=== PATIENT | female | born 1995 | race Caucasian/White ===

== ENCOUNTER 2019-08-30 08:49 | Emergency (ER) | payer BC ==
[2019-08-30] MEDS ORDERED: METHYLPREDNISOLONE 125 MG INJ ONE (09:33)
[2019-08-30] MEDS ORDERED: NA CHLORIDE 0.9% 1,000 ML ONE (09:33)
[2019-08-30 09:45] LABS: Absolute Lymphocytes (CBC) 0.7 K/uL (0.7-4.9); Basophils % 0.2 % (0-1.3); Hematocrit 46.2 % (36.0-45.0); Lymphocytes % 6.8 % (15.3-44.8); MPV 8.4 fL (7.6-11.3); RBC Red Blood Cell Count 5.45 M/uL (3.86-4.86)
[2019-08-30 10:02] LABS: Albumin 3.3 g/dL (3.4-5.0); Bilirubin Direct 0.2 mg/dL (0-0.2); Bilirubin Total 0.6 mg/dL (0.2-1.0); Potassium 3.8 mmol/L (3.5-5.1); Protein, Total 8.1 g/dL (6.4-8.2)
[2019-08-30 10:07] LABS: Urine Amorphous Sediment 1+ /HPF (NONE SEEN); Urine Bacteria 20-50 /HPF (<20); Urine Culture Reflex Order REFLEXED; Urine RBC <5 /HPF (NONE SEEN)
[2019-08-30 10:13] LABS: Urine Blood TRACE (NEG); Urine Glucose NEGATIVE (NEG); Urine Protein NEGATIVE (NEG)
--- NOTE | 2019-08-30 10:32 | RAD REPORT ---
EXAM DESCRIPTION: CT - Abdomen Pelvis W Contrast - 08/30/2019 10:06 am CLINICAL HISTORY: Ulcerative colitis, abd pain, bloody stool COMPARISON: No comparisons TECHNIQUE: Biphasic, helical CT imaging of the abdomen and pelvis was performed following 100 ml non -ionic IV contrast. No oral contrast given. All CT scans are performed using dose optimization technique as appropriate and may include automated exposure control or mA/KV adjustment according to patient size. FINDINGS: No suspicious findings in the lung bases. The liver, spleen, and pancreas show no suspicious findings. Gallbladder and biliary tree are also wi thout suspicious finding. Symmetric renal function is seen with no hydronephrosis or suspicious renal mass. No pyelonephritis o r acute parenchymal process. No bladder abnormalities. No adrenal abnormalities. No uterine abnormali ty. No significant ovarian process. No gastric dilatation or wall thickening. A few small fluid-filled distal small bowel loops are prese nt. No terminal ileum abnormality seen. Appendix is not clearly defined. Cystitis is not suspected. Circumferential wall thickening and edema are present primarily involving the sigmoid and rectum port ions of the colon. Mucosal surfaces enhancing. The wall thickening does extend proximally to the hepa tic flexure region. Cecum and ascending colon are generally spared. No underlying mass lesion. No free air or pneumatosis. Trace amount of stranding is present in the fatty tissues adjacent to th e left side colon. No hernia, mass or bulky lymphadenopathy. No suspicious bony findings. IMPRESSION: Circumferential wall thickening and edema changes are present from the hepatic flexure t o the distal rectum. Findings are most pronounced in the rectosigmoid region. Findings are consistent with the ulcerative colitis history provided. No mass lesion. No No obstruction, free air or surgically emergent finding.
--- NOTE | 2019-08-30 10:48 | ER ---
Nurse's Notes [facility] Name: Barbara Castanon Age: 23 yrs Sex: Female : 1995 Arrival Date: 08/30/2019 Time: 08:53 Bed 20 Private MD: Diagnosis: Ulcerative (chronic) pancolitis without complications;Dehydration Presentation: 08/29 09:23 Chief complaint: Patient states: has hx of ulcerative colitis, has had a flare up for iw past month and half, has 20 plus episodes of bloody stools per day, has been on a liquid diet for past two days, feels more weak. Coronavirus screen: Proceed with normal triage. Patient denies a cough. Patient denies shortness of breath or difficulty breathing. Patient denies measured and/or subjective temperature greater than 100.4F prior to today's visit. Patient denies travel on a cruise ship or to a country the [facility] currently lists as an affected area. Patient denies contact with known and/or suspected case of COVID-19. Ebola Screen: Patient negative for fever greater than or equal to 101.5 degrees Fahrenheit, and additional compatible Ebola Virus Disease symptoms Patient denies exposure to infectious person. Patient denies travel to an Ebola-affected area in the 21 days before illness onset. No symptoms or risks identified at this time. Initial Sepsis Screen: Does the patient meet any 2 criteria? No. Patient's initial sepsis screen is negative. Does the patient have a suspected source of infection? No. Patient's initial sepsis screen is negative. Risk Assessment: Do you want to hurt yourself or someone else? Patient reports no desire to harm self or others. Onset of symptoms was July 2019. 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 - Social history:: Smoking status: Patient denies any tobacco usage or history of. - Family history:: not pertinent. - Hospitalizations: : No recent hospitalization is reported. Screenin:35 Abuse screen: Denies threats or abuse. Denies injuries from another. Nutritional ss screening: No deficits noted. Tuberculosis screening: Never had TB. Fall Risk None identified. Assessment: 09:35 General: Appears in no apparent distress. comfortable, Behavior is calm, cooperative. ss Pain: Complains of pain in abdomen Pain currently is 4 out of 10 on a pain scale. Quality of pain is described as aching, crampy, Is continuous. Neuro: Level of Consciousness is awake, alert, obeys commands, Oriented to person, place, time, situation. Cardiovascular: Capillary refill < 3 seconds is brisk in bilateral fingers. Respiratory: Airway is patent Respiratory effort is even, unlabored, Respiratory pattern is regular, symmetrical. GI: Reports diarrhea, blood in stool. : No signs and/or symptoms were reported regarding the genitourinary system. Denies burning with urination, urinary frequency. EENT: Oral mucosa is moist. Derm: Skin is intact, is healthy with good turgor, Skin is dry, Skin is pink, warm \T\ dry. normal. Musculoskeletal: Circulation, motion, and sensation intact. Range of motion: intact in all extremities, Swelling absent. 10:04 Reassessment: Pt in CT now. ss 10:23 Reassessment: Patient appears in no apparent distress at this time. Patient and/or ss family updated on plan of care and expected duration. Pain level reassessed. Patient is alert, oriented x 3, equal unlabored respirations, skin warm/dry/pink. Pain is now 3/10 and improving. Patient states feeling better. 10:51 Reassessment: Pt up for discharge, awaiting for fluids to complete infusing prior to ss discharge. Vital Signs: 09:23 BP 139 / 106; Pulse 84; Resp 16; Temp 99.1; Pulse Ox 100% on R/A; Weight 63.5 kg; iw Height 5 ft. 9 in. (175.26 cm); Pain 4/10; 10:17 BP 140 / 93; Pulse 74; Resp 16; Pulse Ox 100% on R/A; Pain 3/10; ss 09:23 Body Mass Index 20.67 (63.50 kg, 175.26 cm) ED Course: 08:53 Patient arrived in ED. ag5 09:09 Ulices Mane MD is Attending Physician. rn 09:14 Pedro Boyd, RN is Primary Nurse. bp 09:25 Triage completed. iw 09:28 Arm band placed on. iw 09:29 Inserted saline lock: 20 gauge in right antecubital area, using aseptic technique. ss Blood collected. 09:35 Patient has correct armband on for positive identification. Bed in low position. Call ss light in reach. 10:06 CT Abd/Pelvis - IV Contrast Only In Process Unspecified. EDMS 10:46 Mendez Holguin MD is Referral Physician. rn 11:17 No provider procedures requiring assistance completed. Patient did not have IV access ss during this emergency room visit. Administered Medications: 09:30 Drug: NS 0.9% 1000 ml Route: IV; Rate: 1000 ml; Site: right antecubital; ss 11:17 Follow up: IV Status: Completed infusion; IV Intake: 1000ml ss 09:31 Drug: SOLU-Medrol 125 mg Route: IVP; Site: right antecubital; ss 11:17 Follow up: Response: No adverse reaction ss Intake: 11:17 IV: 1000ml; Total: 1000ml. ss Outcome: 10:47 Discharge ordered by MD. rn 11:17 Discharged to home ambulatory. ss 11:17 Condition: good 11:17 Discharge instructions given to patient, Instructed on discharge instructions, follow up and referral plans. Demonstrated understanding of instructions, follow-up care. 11:18 Patient left the ED. ss Signatures: Dispatcher [employer] EDMS Kandice Mcdermott RN RN Ulices Mane MD MD rn Smirch, Shelby, RN RN Pedro Boyd, Parag Marques RN ag5
[2019-08-30 10:55] LABS: Blood Morphology Comment NOT SEEN (NOT SEEN); Platelet Estimate ADEQ
--- NOTE | 2019-08-30 11:19 | EDPHYS ---
Physician Documentation [facility] Name: Barbara Castanon Age: 23 yrs Sex: Female : 1995 Arrival Date: 08/30/2019 Time: 08:53 Bed 20 Private MD: ED Physician Ulices Mane HPI: 08/29 09:28 This 23 yrs old Female presents to ER via Ambulatory with complaints of rn Ulcerative Colitis Flare Up. 09:28 The patient presents with abdominal pain in the lower abdomen. Onset: The rn symptoms/episode began/occurred 1.5 month(s) ago. The symptoms do not radiate. Associated signs and symptoms: Pertinent positives: blood in stools, diarrhea, nausea, Pertinent negatives: fever, vaginal discharge, vomiting blood. The symptoms are described as crampy. Modifying factors: The symptoms are alleviated by nothing, the symptoms are aggravated by food, touching the area. Severity of pain: At its worst the pain was moderate in the emergency department the pain has improved. The patient has experienced similar episodes in the past. Reports lower abd cramping, pain is actually improving, came 2/2 ulcerative colitis flare up, has uptitrated her prednisone to 50mg daily, sees Dr. Holguin, is on biologics, reports some blood in stool, + generalized weakness and fatigue. Reports usually when gets like this is able to get IV infusion of fluids and feels better. Has never required blood transfusion. . 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 - Social history:: Smoking status: Patient denies any tobacco usage or history of. - Family history:: not pertinent. - Hospitalizations: : No recent hospitalization is reported. ROS: 09:28 Constitutional: Negative for fever, chills Eyes: Negative for injury, pain, redness, rn and discharge, Neck: Negative for injury, pain, and swelling, Cardiovascular: Negative for chest pain, palpitations, and edema, Respiratory: Negative for shortness of breath, cough, wheezing, and pleuritic chest pain, Abdomen/GI: Negative for vomiting, and constipation, MS/Extremity: Negative for injury and deformity, Skin: Negative for injury, rash, and discoloration, Neuro: Negative for headache, numbness, tingling, and seizure. Exam: 09:28 Constitutional: This is a well developed, well nourished patient who is awake, alert, rn and in no acute distress. Ambulatory to room without difficulty or assistance. Head/Face: Normocephalic, atraumatic. Eyes: Conjunctiva and sclera are non-icteric and not injected. Cornea within normal limits. Periorbital areas with no swelling, redness, or edema. ENT: Dry MM Cardiovascular: Regular rate and rhythm. No pulse deficits. Respiratory: No increased work of breathing, no retractions or nasal flaring. Abdomen/GI: soft, non-tender, no rebound, non-distended Skin: Warm, dry MS/ Extremity: Pulses equal, no cyanosis. Neurovascular intact. Full, normal range of motion. Equal circumference. Neuro: Awake and alert, GCS 15 Vital Signs: 09:23 BP 139 / 106; Pulse 84; Resp 16; Temp 99.1; Pulse Ox 100% on R/A; Weight 63.5 kg; iw Height 5 ft. 9 in. (175.26 cm); Pain 4/10; 10:17 BP 140 / 93; Pulse 74; Resp 16; Pulse Ox 100% on R/A; Pain 3/10; ss 09:23 Body Mass Index 20.67 (63.50 kg, 175.26 cm) iw MDM: 09:10 Patient medically screened. rn 10:45 Differential diagnosis: bowel obstruction, non-specific abd pain, colitis, Ulcerative rn colitis, appendicitis. Data reviewed: vital signs, nurses notes, lab test result(s), radiologic studies, CT scan, and as a result, I will discharge patient. Counseling: I had a detailed discussion with the patient and/or guardian regarding: the historical points, exam findings, and any diagnostic results supporting the discharge/admit diagnosis, lab results, radiology results, the need for outpatient follow up, to return to the emergency department if symptoms worsen or persist or if there are any questions or concerns that arise at home. Response to treatment: the patient's symptoms have mildly improved after treatment, and as a result, I will discharge patient. Special discussion: I discussed with the patient/guardian in detail that at this point there is no indication for admission to the hospital. It is understood, however, that if the symptoms persist or worsen the patient needs to return immediately for re-evaluation. ED course: No acute findings in CT abdomen or bloodwork other than dehydration, no anemia requiring blood transfusion, improved with IVF, will dc home with continuation of steroids and GI f/u. . 08/29 09:15 Order name: Basic Metabolic Panel; Complete Time: 10:16 08/29 09:15 Order name: CBC with Diff 08/29 09:15 Order name: Hepatic Function; Complete Time: 10:16 08/29 09:15 Order name: Lipase; Complete Time: 10:16 08/29 09:15 Order name: Urine Microscopic Only; Complete Time: 10:16 08/29 09:46 Order name: Urine Dipstick--Ancillary (enter results); Complete Time: 10:16 [facility] 08/29 09:15 Order name: IV Saline Lock; Complete Time: 09:44 08/29 09:15 Order name: CT Abd/Pelvis - IV Contrast Only; Complete Time: 10:45 08/29 09:46 Order name: Urine --Ancillary (enter results); Complete Time: 10:16 [facility] 08/29 10:10 Order name: Urine Culture [facility] 08/29 10:22 Order name: CREATININE WHOLE BLOOD; Complete Time: 10:45 [facility] 08/29 10:56 Order name: Manual Differential [facility] 08/29 09:15 Order name: Labs collected and sent; Complete Time: 09:45 08/29 09:15 Order name: Urine Test (obtain specimen); Complete Time: 09:44 08/29 09:15 Order name: Urine Dipstick-Ancillary (obtain specimen); Complete Time: 09:44 rn Administered Medications: 09:30 Drug: NS 0.9% 1000 ml Route: IV; Rate: 1000 ml; Site: right antecubital; 11:17 Follow up: IV Status: Completed infusion; IV Intake: 1000ml 09:31 Drug: SOLU-Medrol 125 mg Route: IVP; Site: right antecubital; 11:17 Follow up: Response: No adverse reaction ss Disposition: 08/30/19 10:47 Discharged to Home. Impression: Ulcerative (chronic) pancolitis without complications, Dehydration. - Condition is Stable. - Discharge Instructions: Dehydration, Adult, Ulcerative Colitis, Adult. - Medication Reconciliation Form, Thank You Letter, Antibiotic Education, Prescription Opioid Use form. - Follow up: Mendez Holguin MD; When: As needed; Reason: Recheck today's complaints, Re-evaluation by your physician. - Problem is an acute exacerbation. - Symptoms have improved. Signatures: Dispatcher [employer] EDKandice Luo RN RN Ulices Mane MD MD rn Smirch, Shelby, RN RN Corrections: (The following items were deleted from the chart) 11:18 10:47 08/30/2019 10:47 Discharged to Home. Impression: Ulcerative (chronic) pancolitis ss without complications; Dehydration. Condition is Stable. Forms are Medication Reconciliation Form, Thank You Letter, Antibiotic Education, Prescription Opioid Use. Follow up: Mendez Holguin; When: As needed; Reason: Recheck today's complaints, Re-evaluation by your physician. Problem is an acute exacerbation. Symptoms have improved. rn
[2019-08-30 11:41] VITALS: TEMP 99.1; O2SAT 100
[2019-08-30 11:42] VITALS: BP 140/93
== END 2019-08-30 11:18 | disposition home or self-care (01) ==
LOC: ER 08:49
DX: E86.0 Dehydration (principal); E03.9 Hypothyroidism, unspecified; Z88.8 Allergy status to other drugs, medicaments and biological substances
CPT/HCPCS: 96361; 87088; 85025; 87086; 80048; 36415; 81025; 82565; 80076; 83690; 74177; 96374; 99284; Q9967; J7030; J2930; 81003; 81015

== ENCOUNTER 2019-09-28 05:57 | Observation (INO) | payer BC ==
[2019-09-28] MEDS ORDERED: MORPHINE 4 MG/ML SYR ONE ×2 (06:21→08:05)
[2019-09-28] MEDS ORDERED: ONDANSETRON 4 MG/2 ML VIAL ONE ×2 (06:21→09:59)
[2019-09-28] MEDS ORDERED: NA CHLORIDE 0.9% 1,000 ML ONE ×2 (06:21→08:35)
[2019-09-28 06:39] LABS: Absolute Lymphocytes (CBC) 1.4 K/uL (0.7-4.9); Basophils % 0.2 % (0-1.3); Hematocrit 38.2 % (36.0-45.0); Lymphocytes % 7.7 % (15.3-44.8); MPV 8.3 fL (7.6-11.3); RBC Red Blood Cell Count 4.29 M/uL (3.86-4.86)
[2019-09-28 06:59] LABS: Albumin 3.5 g/dL (3.4-5.0); Bilirubin Direct 0.1 mg/dL (0-0.2); Bilirubin Total 0.6 mg/dL (0.2-1.0); Potassium 3.6 mmol/L (3.5-5.1); Protein, Total 7.3 g/dL (6.4-8.2)
--- NOTE | 2019-09-28 07:16 | RAD REPORT ---
EXAM DESCRIPTION: CTAbdomen Pelvis W Contrast - 09/28/2019 6:48 am CLINICAL HISTORY: Abdominal pain. ABD PAIN COMPARISON: Abdomen Pelvis W Contrast dated 08/30/2019 TECHNIQUE: Biphasic CT imaging of the abdomen and pelvis was performed with 100 ml non-ionic IV cont rast. All CT scans are performed using dose optimization technique as appropriate and may include automated exposure control or mA/KV adjustment according to patient size. FINDINGS: The lung bases are clear. The liver, spleen, pancreas, adrenal glands and kidneys are within normal limits. No bowel obstruction, free air, free fluid or abscess. Mild inflammatory changes involves the cecum and ascending colon. The appendix appears mildly thickened with mucosal enhancement and dilated as we ll measuring up to 10 mm. No evidence of significant lymphadenopathy. No suspicious bony findings. IMPRESSION: Mild inflammation of the cecum and ascending colon is compatible with colitis. Dilatatio n of the appendix to 10 mm with mild mucosal thickening also present which could be secondary to the cecal inflammation or acute appendicitis.
[2019-09-28 08:04] LABS: Anisocytosis 1+; Blood Morphology Comment NOTED (NOT SEEN); Platelet Estimate ADEQ
--- NOTE | 2019-09-28 08:07 | ER ---
Nurse's Notes [facility] Name: Barbara Castanon Age: 24 yrs Sex: Female : 1995 Arrival Date: 09/28/2019 Time: 05:58 Bed 8 Private MD: Diagnosis: Acute appendicitis;Ulcerative Colitis Presentation: 09/27 06:14 Chief complaint: Patient states: Abdominal pain that began yesterday to right side of lp1 abdomen radiating to lower abdomen; states hx of ulcerative colitis, finishing Prednisone treatment; states temp of 100 at home. Coronavirus screen: Patient denies a cough. Patient denies shortness of breath or difficulty breathing. Patient reports a measured and/or subjective temperature greater than 100.4F. Patient denies travel on a cruise ship or to a country the [facility] currently lists as an affected area. Patient denies contact with known and/or suspected case of COVID-19. Proceed with normal triage. Ebola Screen: No symptoms or risks identified at this time. Initial Sepsis Screen: Does the patient meet any 2 criteria? No. Patient's initial sepsis screen is negative. Does the patient have a suspected source of infection? No. Patient's initial sepsis screen is negative. Risk Assessment: Do you want to hurt yourself or someone else? Patient reports no desire to harm self or others. Onset of symptoms was September 27, 2019. 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 - Social history:: Smoking status: Patient denies any tobacco usage or history of. Screenin:20 Abuse screen: Denies threats or abuse. Denies injuries from another. Nutritional lp1 screening: No deficits noted. Tuberculosis screening: No symptoms or risk factors identified. Fall Risk None identified. Assessment: 06:34 General: Appears in no apparent distress. comfortable, Behavior is calm, cooperative. mg2 Pain: Complains of pain in abdomen Pain currently is 8 out of 10 on a pain scale. Quality of pain is described as aching, Pain began gradually, Is intermittent. Neuro: Level of Consciousness is awake, alert, obeys commands, Oriented to person, place, time, situation. Cardiovascular: Capillary refill < 3 seconds Patient's skin is warm and dry. Respiratory: Airway is patent Respiratory effort is even, unlabored, Respiratory pattern is regular, symmetrical. GI: Bowel sounds present X 4 quads. Abd is soft X 4 quads. GI: Reports lower abdominal pain, upper abdominal pain, nausea. : No signs and/or symptoms were reported regarding the genitourinary system. EENT: No signs and/or symptoms were reported regarding the EENT system. Derm: Skin is intact, is healthy with good turgor, Skin is pink, warm \T\ dry. normal. Musculoskeletal: Circulation, motion, and sensation intact. Capillary refill < 3 seconds. 06:35 Reassessment: patient sent to ct scan. mg2 07:10 General: Appears in no apparent distress. comfortable, Behavior is calm, cooperative, sv appropriate for age. Pain: Complains of pain in abdomen. Neuro: Level of Consciousness is awake, alert, obeys commands, Oriented to person, place, time, situation, Moves all extremities. Full function. Respiratory: Airway is patent Respiratory effort is even, unlabored, Respiratory pattern is regular, symmetrical. GI: Reports lower abdominal pain, upper abdominal pain. Derm: Skin is pink, warm \T\ dry. 07:55 Reassessment: Patient appears in no apparent distress at this time. No changes from sv previously documented assessment. Patient and/or family updated on plan of care and expected duration. Pain level reassessed. 08:42 Reassessment: Patient appears in no apparent distress at this time. No changes from sv previously documented assessment. Patient and/or family updated on plan of care and expected duration. Pain level reassessed. Patient is alert, oriented x 3, equal unlabored respirations, skin warm/dry/pink. Vital Signs: 06:14 BP 111 / 63; Pulse 96; Resp 16; Temp 100.1(O); Pulse Ox 99% on R/A; Weight 65.77 kg lp1 (R); Height 5 ft. 9 in. (175.26 cm); Pain 7/10; 07:24 BP 113 / 69; Pulse 88; Resp 16; Pulse Ox 100% ; sv 06:14 Body Mass Index 21.41 (65.77 kg, 175.26 cm) lp1 ED Course: 05:58 Patient arrived in ED. ds1 06:00 [facility] kb 06:00 William Bauer MD is Attending Physician. kb 06:08 Félix Mclaughlin, RN is Primary Nurse. mg2 06:18 Triage completed. lp1 06:18 Arm band placed on. lp1 06:30 Inserted saline lock: 20 gauge in right wrist, using aseptic technique. Blood collected.mg2 06:35 No provider procedures requiring assistance completed. mg2 06:36 Patient has correct armband on for positive identification. mg2 06:49 CT Abd/Pelvis - IV Contrast Only In Process Unspecified. EDMS 07:16 Primary Nurse role handed off by Félix Mclaughlin, BISI sv 07:16 Isabel Hoskins, BISI is Primary Nurse. sv 08:06 Jaguar Fitch MD is Hospitalizing Provider. kb 09:10 Patient admitted, IV remains in place. intact. sv Administered Medications: 06:32 Drug: morphine 4 mg Route: IVP; Site: right wrist; mg2 07:00 Follow up: Response: No adverse reaction; RASS: Alert and Calm (0) sv 06:33 Drug: NS 0.9% 1000 ml Route: IV; Rate: 1000 ml; Site: right wrist; mg2 07:58 Follow up: Response: No adverse reaction; IV Status: Completed infusion; IV Intake: sv 1000ml 06:33 Drug: Zofran (Ondansetron) 4 mg Route: IVP; Site: right wrist; mg2 07:30 Follow up: Response: No adverse reaction em 07:58 Follow up: Response: No adverse reaction sv 08:01 Drug: morphine 4 mg Route: IVP; Site: right wrist; em 08:51 Follow up: Response: No adverse reaction sv 08:40 Drug: NS 0.9% 1000 ml Route: IV; Rate: 125 ml/hr; Site: right wrist; sv 09:10 Follow up: Response: No adverse reaction; IV Status: Infusion continued upon admission sv 08:40 Drug: Rocephin 1 grams Route: IV; Rate: calculated rate; Site: right wrist; sv 08:42 Drug: Flagyl 500 mg Volume: 100 ml; Route: IVPB; Rate: 200 ml/hr; Infused Over: 30 sv mins; Site: right wrist; 09:10 Follow up: Response: No adverse reaction; IV Status: Infusion continued upon admission sv Intake: 07:58 IV: 1000ml; Total: 1000ml. sv Outcome: 08:06 Decision to Hospitalize by Provider. kb 09:10 Patient left the ED. em 09:10 Admitted to OR accompanied by nurse, via wheelchair. sv 09:10 Condition: stable 09:10 Instructed on the need for admit. Signatures: Dispatcher [employer] Tracy Rodriguez, GAS MASK ASSEMBLER-C GAS MASK ASSEMBLER-Isabel Bautista, RN RN Ac Mathews, RN RN Rosie Garcia ds1 Carmelita Angeles RN RN lp1 Félix Mclaughlin RN RN mg2
--- NOTE | 2019-09-28 08:07 | EDPHYS ---
Physician Documentation [facility] Name: Barbara Castanon Age: 24 yrs Sex: Female : 1995 Arrival Date: 09/28/2019 Time: 05:58 Bed 8 Private MD: ED Physician William Bauer HPI: 09/27 06:32 This 24 yrs old Female presents to ER via Ambulatory with complaints of kb Abdominal Pain, Fever. 06:32 The patient presents with abdominal pain that is diffuse. Onset: The symptoms/episode kb began/occurred yesterday. The symptoms do not radiate. Associated signs and symptoms: Pertinent positives: fever. The symptoms are described as constant. Modifying factors: The symptoms are alleviated by nothing, the symptoms are aggravated by nothing. Severity of pain: At its worst the pain was moderate in the emergency department the pain is unchanged. The patient has not experienced similar symptoms in the past. The patient has not recently seen a physician. [employer]ER: 06:20 LMP 09/07/2019 lp1 Historical: - Allergies: 06:19 Methimazole; lp1 06:19 Amoxicillin; lp1 - Home Meds: 06:19 Claritin 10 mg Oral tab 1 tab once daily [Active]; levothyroxine 75 mcg tab 1 tab once lp1 daily [Active]; prednisone Oral [Active]; Probiotic Oral [Active]; Vitamin B-12 Oral daily [Active]; Vitamin D Oral daily [Active]; Xeljanz 10 mg Oral 2 times per day [Active]; Zyrtec 10 mg Oral tab 1 tab once daily [Active]; - PMHx: 06:19 Hypothyroidism; ulcerative colitis; lp1 - PSHx: 06:19 Thyroid ablasion; lp1 - Immunization history:: Adult Immunizations up to date. - Social history:: Smoking status: Patient denies any tobacco usage or history of. ROS: 06:31 Cardiovascular: Negative for chest pain, palpitations, and edema, Respiratory: Negative kb for shortness of breath, cough, wheezing, and pleuritic chest pain, Back: Negative for injury and pain, : Negative for injury, bleeding, discharge, and swelling, MS/Extremity: Negative for injury and deformity, Skin: Negative for injury, rash, and discoloration. 06:31 Constitutional: Positive for fever, malaise. 06:31 Abdomen/GI: Positive for abdominal pain. 06:31 Neuro: Positive for dizziness. Exam: 06:31 Constitutional: This is a well developed, well nourished patient who is awake, alert, kb and in no acute distress. Head/Face: Normocephalic, atraumatic. Chest/axilla: Normal chest wall appearance and motion. Nontender with no deformity. No lesions are appreciated. Cardiovascular: Regular rate and rhythm with a normal S1 and S2. No gallops, murmurs, or rubs. Normal PMI, no JVD. No pulse deficits. Respiratory: Lungs have equal breath sounds bilaterally, clear to auscultation and percussion. No rales, rhonchi or wheezes noted. No increased work of breathing, no retractions or nasal flaring. Back: No spinal tenderness. No costovertebral tenderness. Full range of motion. Skin: Warm, dry with normal turgor. Normal color with no rashes, no lesions, and no evidence of cellulitis. MS/ Extremity: Pulses equal, no cyanosis. Neurovascular intact. Full, normal range of motion. Neuro: Awake and alert, GCS 15, oriented to person, place, time, and situation. Cranial nerves II-XII grossly intact. Motor strength 5/5 in all extremities. Sensory grossly intact. Cerebellar exam normal. Normal gait. 06:31 Abdomen/GI: Inspection: abdomen appears normal, Bowel sounds: normal, in all quadrants, Palpation: soft, in all quadrants, mild abdominal tenderness, in the left upper quadrant and left lower quadrant, moderate abdominal tenderness, in the right upper quadrant and right lower quadrant. Vital Signs: 06:14 BP 111 / 63; Pulse 96; Resp 16; Temp 100.1(O); Pulse Ox 99% on R/A; Weight 65.77 kg lp1 (R); Height 5 ft. 9 in. (175.26 cm); Pain 7/10; 07:24 BP 113 / 69; Pulse 88; Resp 16; Pulse Ox 100% ; sv 06:14 Body Mass Index 21.41 (65.77 kg, 175.26 cm) lp1 MDM: 06:07 Patient medically screened. kb 06:30 Data reviewed: vital signs, nurses notes. Data interpreted: Pulse oximetry: on room air kb is 99 %. Interpretation: normal. 08:03 Counseling: I had a detailed discussion with the patient and/or guardian regarding: the kb historical points, exam findings, and any diagnostic results supporting the discharge/admit diagnosis, lab results, radiology results, the need for further work-up and treatment in the hospital. Physician consultation: Markell España MD was contacted at 07:55, regarding consult, patient's condition, and will see patient in OR. 08:04 Physician consultation: Jamie KELLY was contacted at 08:04, regarding admission, kb to the medical/surgical unit. patient's condition, and will see patient in ED, shortly. 09/27 06:10 Order name: Basic Metabolic Panel; Complete Time: 07:06 kb 09/27 06:10 Order name: CBC with Diff; Complete Time: 08:05 kb 09/27 06:10 Order name: Hepatic Function; Complete Time: 07:06 kb 09/27 06:10 Order name: Lipase; Complete Time: 07:06 kb 09/27 06:43 Order name: CREATININE WHOLE BLOOD; Complete Time: 06:46 EDMS 09/27 08:04 Order name: Manual Differential; Complete Time: 08:05 EDMS 09/27 06:10 Order name: CT Abd/Pelvis - IV Contrast Only; Complete Time: 07:17 kb 09/27 08:11 Order name: Urine Dipstick--Ancillary (enter results) bd 09/27 08:11 Order name: Urine --Ancillary (enter results) bd 09/27 06:10 Order name: IV Saline Lock; Complete Time: 06:33 kb 09/27 06:10 Order name: Labs collected and sent; Complete Time: 06:34 kb 09/27 06:10 Order name: Urine Dipstick-Ancillary (obtain specimen); Complete Time: 08:05 kb Administered Medications: 06:32 Drug: morphine 4 mg Route: IVP; Site: right wrist; mg2 07:00 Follow up: Response: No adverse reaction; RASS: Alert and Calm (0) sv 06:33 Drug: NS 0.9% 1000 ml Route: IV; Rate: 1000 ml; Site: right wrist; mg2 07:58 Follow up: Response: No adverse reaction; IV Status: Completed infusion; IV Intake: sv 1000ml 06:33 Drug: Zofran (Ondansetron) 4 mg Route: IVP; Site: right wrist; mg2 07:30 Follow up: Response: No adverse reaction em 07:58 Follow up: Response: No adverse reaction sv 08:01 Drug: morphine 4 mg Route: IVP; Site: right wrist; em 08:51 Follow up: Response: No adverse reaction sv 08:40 Drug: NS 0.9% 1000 ml Route: IV; Rate: 125 ml/hr; Site: right wrist; sv 09:10 Follow up: Response: No adverse reaction; IV Status: Infusion continued upon admission sv 08:40 Drug: Rocephin 1 grams Route: IV; Rate: calculated rate; Site: right wrist; sv 08:42 Drug: Flagyl 500 mg Volume: 100 ml; Route: IVPB; Rate: 200 ml/hr; Infused Over: 30 sv mins; Site: right wrist; 09:10 Follow up: Response: No adverse reaction; IV Status: Infusion continued upon admission sv Disposition: 09/28/19 08:06 Hospitalization ordered by Jaguar Fitch for Observation. Preliminary diagnosis are Acute appendicitis, Ulcerative Colitis. - Bed requested for Telemetry/MedSurg (observation). - Status is Observation. em - Condition is Stable. - Problem is new. - Symptoms are unchanged. Addendum: 10/04/2019 20:02 Co-signature as Attending Physician, William Bauer MD. p kl Signatures: Dispatcher [employer] Tracy Rodriguez, [employer] TECHNICIAN-Dianna Kumar Stephanie RN William Phelan MD MD pkl Munoz, Edgar, RN RN em Carmelita Angeles RN RN lp1 Félix Mclaughlin RN RN mg2 Corrections: (The following items were deleted from the chart) 09/27 08:41 08:06 Hospitalization Ordered by Jaguar Fitch MD for Observation. Preliminary bd diagnosis is Acute appendicitis; Ulcerative Colitis. Bed requested for Telemetry/MedSurg (observation). Status is Observation. Condition is Stable. Problem is new. Symptoms are unchanged. kb 09:10 08:41 09/28/2019 08:06 Hospitalization Ordered by Jaguar Fitch MD for Observation. em Preliminary diagnosis is Acute appendicitis; Ulcerative Colitis. Bed requested for Telemetry/MedSurg (observation). Status is Observation. Condition is Stable. Problem is new. Symptoms are unchanged. bd
--- NOTE | 2019-09-28 08:31 | P.HP ---
Certification for Inpatient Patient admitted to: Inpatient With expected LOS: >2 Midnights Patient will require the following post-hospital care: None Practitioner: I am a practitioner with admitting privileges, knowledge of patient current condition, hospital course, and medical plan of care. Services: Services provided to patient in accordance with Admission requirements found in Title 42 Section 412.3 of the Code of Federal Regulations <Jamie Browne - Last Filed: 09/28/19 08:25> Patient History Date of Service: 09/28/19 Primary Care Provider: none Reason for admission: Acute appendicitis History of Present Illness: 24-year-old female with medical history of ulcerative colitis, hypothy roidism presents emergency department for a 1 day history of right-sided abdominal pain as localizing to the right lower quadrant. Patient reports this pain is not significantly different than her ulcer colitis pain which is usually in the left lower quadrant. Patient reports that she had a flare of ulcerative colitis approximately 1 month ago and has been on daily steroid since then. Patient is currently tapering down and currently at 5 mg daily. Patient was evaluated in the emergency department and found to have an elevated white blood cell count [address] indicating acute appendicitis. General surgery was consulted while the patient is in the emergency department and will take patient to the operating room shortly. General surgery wishes to have patient admitted to hospitalist service due to other chronic health issues. Will admit patient for further evaluation and management. Home medications list reviewed: Yes - Past Medical/Surgical History Has patient received pneumonia vaccine in the past: No -: Ulcerative colitis -: Hypothyroidism -: Thyroid ablation -: [place] teeth Psychosocial/ Personal History: Patient currently lives at home alone - Family History Family History: Reviewed- Non-Contributory - Social History Smoking Status: Never smoker Alcohol use: No CD- Drugs: No Caffeine use: No Place of Residence: Home <Jamie Browne - Last Filed: 09/28/19 08:25> Date of Service: 09/28/19 <Sandor Fitch - Last Filed: 09/28/19 16:43> Allergies amoxicillin Allergy (Verified 09/28/19 10:23) Anaphylaxis methimazole [From Tapazole] Allergy (Verified 09/28/19 10:23) Itching/Hives/Rash egg yolk Adverse Reaction (Verified 09/28/19 10:23) Nausea/Vomiting Home Medications: Cyanocobalamin [Vitamin B-12] 1,000 mcg PO DAILY 09/28/19 Levothyroxine [Synthroid] 75 mcg PO [id number] 09/28/19 Loratadine [Claritin] 10 mg PO DAILY 09/28/19 Tofacitinib Citrate [Xeljanz] 10 mg PO BID 09/28/19 Vitamin D [Drisdol] 50,000 unit PO DAILY 09/28/19 predniSONE [Deltasone] 5 mg PO DAILY 09/28/19 Review of Systems 10-point ROS is otherwise unremarkable Gastrointestinal: Abdominal Pain, As per HPI <Jamie Browne - Last Filed: 09/28/19 08:25> Physical Examination - Physical Exam General: Alert, In no apparent distress HEENT: Atraumatic, PERRLA, Mucous membr. moist/pink, EOMI, Sclerae nonicteric Neck: Supple, 2+ carotid pulse no bruit Respiratory: Clear to auscultation bilaterally, Normal air movement Cardiovascular: Regular rate/rhythm, Normal S1 S2 Gastrointestinal: Hypoactive, No masses, No rebound, No guarding, Tenderness (Mild to moderate tenderness right lower quadrant) Musculoskeletal: No contractures, No erythema Integumentary: No rashes Neurological: Normal speech, Normal strength at 5/5 x4 extr, Normal tone, Normal affect - Studies Laboratory Data (last 24 hrs) 09/28/19 06:30: WBC 18.3 H, Hgb 12.7, Hct 38.2, Plt Count 199 09/28/19 06:30: Sodium 140, Potassium 3.6, BUN 14, Creatinine 1.05, Glucose 101, Total Bilirubin 0.6, AST 19, ALT 28, Alkaline Phosphatase 63, Lipase 148 <Jamie Browne - Last Filed: 09/28/19 08:25> - Studies Laboratory Data (last 24 hrs) 09/28/19 06:30: WBC 18.3 H, Hgb 12.7, Hct 38.2, Plt Count 199 09/28/19 06:30: Sodium 140, Potassium 3.6, BUN 14, Creatinine 1.05, Glucose 101, Total Bilirubin 0.6, AST 19, ALT 28, Alkaline Phosphatase 63, Lipase 148 <Sandor Fitch - Last Filed: 09/28/19 16:43> Assessment and Plan - Plan Assessment Acute appendicitis complicated by inflammation of the cecum and ascending colon secondary to ulcer colitis Ulcerative colitis Hypothyroidism Plan Acute appendicitis complicated by inflammation of the cecum and ascending colon secondary to ulcer colitis: General surgery has been consulted on this case. Patient will have appendectomy this morning. Will allow surgery to advance diet and she is antibiotics after surgery. Will begin DVT prophylaxis tomorrow, repeat labs in the morning. Anticipate clinical improvement next 24-48 hr. Patient with history of ulcerative colitis, if she has complications after surgery including worsening abdominal pain or UC flare will consult Gastroenterology. Patient sees . Will hold patient's steroids as she is preparing for surgery. Ulcerative colitis: Continue as above. Hypothyroidism: Will obtain and continue patient's home medications. Will check TSH and free T4 with the morning labs. Discharge Plan: Home Plan to discharge in: 48 Hours - Advance Directives Does patient have a Living Will: No Does patient have a Durable POA for Healthcare: No - Code Status/Comfort Care Code Status Assessed: Yes (Patient is full code) Critical Care: No Time Spent Managing Pts Care (In Minutes): 55 <Jamie Browne - Last Filed: 09/28/19 08:25> Physician Review Additional Text: Patient was seen and examined and findings were discussed Agree with the assessment and plan as documented by the MAIK <Sandor Fitch - Last Filed: 09/28/19 16:43>
[2019-09-28] MEDS ORDERED: CEFTRIAXONE/SWI 1gm 1 GM/10 ML SYR ONE (08:34)
[2019-09-28] MEDS ORDERED: METRONIDAZOLE 500mg IVPB 500 MG/100 ML BAG IV ONE (08:35)
[2019-09-28] MEDS ORDERED: propofoL 200 MG/20 ML VIAL IV ONE (09:01)
[2019-09-28] MEDS ORDERED: ROCURONIUM 50 MG/5 ML VIAL IV ONE (09:01)
[2019-09-28] MEDS ORDERED: LIDOCAINE 2% MPF 5 ML VIAL ONE (09:01)
[2019-09-28] MEDS ORDERED: FENTANYL CITR 100 MCG/2 ML ONE (09:01)
[2019-09-28] MEDS ORDERED: dexAMETHasone 10 MG/ML VIAL ONE (09:01)
[2019-09-28] MEDS ORDERED: MIDAZOLAM HCL 2 MG/2 ML INJ ONE (09:02)
[2019-09-28] MEDS ORDERED: CEFOXITIN/SWI 1gm 0 GM/0 ML SYR ONE (09:20)
[2019-09-28 09:25] LABS: Urine Blood NEGATIVE (NEG); Urine Glucose NEGATIVE (NEG); Urine Protein NEGATIVE (NEG); Urine Specific Gravity 1.015 (1.005-1.030)
--- NOTE | 2019-09-28 09:28 | PREOPCON ---
Date of Consultation: 09/28/2019 Chief Complaint: Abdominal pain. History Of Present Illness: The patient is a 24-year-old female, who comes in with a 1-day history o f right-sided abdominal pain localizing to the right lower quadrant suprapubic region associated with nausea. No vomiting. No anorexia. No diarrhea or constipation. No blood in her stool. No dysuri a or hematuria. No sore throat, runny nose, cough, headaches, or dizziness. No chest pain. She brito s have low-grade temperatures. She had acute exacerbation of her ulcerative colitis about a month ag o, was treated with high-dose steroids. She has been tapered down to 5 mg daily now and she is also on an immunosuppressant medication as well. Past Medical History: Significant for ulcerative colitis, hypothyroidism. Past Surgical History: Negative. Allergies: NO ALLERGIES. Social History: She denies smoking or drinking. Family History: Noncontributory. Physical Examination: Vital Signs: Stable. She is currently afebrile. General: She is awake, alert, and oriented x3. Head and Neck: Cranial nerves 2 through 12 are grossly within normal limits. No neck masses. No JV D. Throat clear. Neck supple. Chest: Clear. Heart: S1, S2. Abdomen: Soft. Positive right lower quadrant tenderness with rebound and rigidity. Extremities: Adequately perfused. Nontender. Neuro: Nonfocal. Laboratory Data: White count is 18,000 with a left shift. CT of the abdomen and pelvis reviewed wit h the radiologist. There is some mild inflammation of the cecum as well as the ascending colon; fountain rodney, the appendix is 10 mm, appears acutely inflamed consistent with acute appendicitis. Assessment: Acute appendicitis in a patient with a history of ulcerative colitis. Recommendation: Admit, n.p.o., IV fluid, IV antibiotic. To the OR for lap appy, possible open. The patient and father understand the risks, benefits, and alternatives and agree to procedure. /MODL Voice ID: [id number] Report ID: [id number]
[2019-09-28] MEDS ORDERED: Phenylephrine HCl 10 MG/ML 1 ML VIAL ONE (09:37)
[2019-09-28] MEDS ORDERED: NEOSTIGMINE 1 MG/ML -5 ML ONE (09:59)
[2019-09-28] MEDS ORDERED: KETOROLAC 30 MG/ML INJ ONE (09:59)
[2019-09-28] MEDS ORDERED: GLYCOPYRROLATE 0.2 MG/ML SYR ONE (09:59)
[2019-09-28] MEDS: HYDROMORPHONE HCL 1 MG/ML INJ ONE ×2 (10:15→10:25)
[2019-09-28] MEDS ORDERED: D5 0.45 NS 1,000 ML IV SCH (10:27)
[2019-09-28] MEDS ORDERED: ONDANSETRON 4 MG/2 ML VIAL IV PRN (10:27)
[2019-09-28] MEDS ORDERED: MORPHINE 2 MG/ML SYR IV PRN (10:27)
[2019-09-28] MEDS ORDERED: ACETAMINOPHEN 500 MG TAB PO PRN (10:27)
[2019-09-28 10:40] VITALS: BMI 21.4
[2019-09-28 10:50] VITALS: O2SAT 96
[2019-09-28] MEDS ORDERED: HYDROMORPHONE HCL 1 MG/ML INJ IV PRN (10:56)
--- NOTE | 2019-09-28 10:58 | OP ---
Date of Procedure: 09/28/2019 Surgeon: Markell España MD Preoperative Diagnosis: Acute appendicitis and ulcerative colitis. Postoperative Diagnosis: Acute appendicitis and ulcerative colitis. Procedure: Laparoscopic appendectomy. Estimated Blood Loss: Minimal. Specimen: Appendix. Findings: As above. Anesthesia: General. Complications: None. Disposition: The patient tolerated procedure in stable condition, taken to Recovery in good general condition. Description Of Procedure: The patient was brought to the OR and placed in supine position and general anesthesia was begun. The patient was prepped and draped in the usual sterile fashion. Marcaine 0.5% was infiltrated locally. A 15-blade was used to make a 1 cm supraumbilical midline incision. Subcutaneous tissue was divided. Fascia was identified and divided. #1 Vicryl stay suture was placed. Peritoneal cavity was entered with blunt dissection. A 12 mm trocar was placed into the peritoneal cavity under direct vision. Pneumoperitoneum was established. Then, two 5 mm trocars were placed, 1 in the suprapubic region and 1 in the left lower quadrant. Laparoscopy revealed acute appendicitis as well as inflammation of the cecum and ascending colon mild. Base of the appendix and mesoappendix was identified. Endo-BELLA stapling device was used to divide both structures. Appendix was retrieved through the umbilicus via an EndoCatch bag. Right lower quadrant was irrigated, effluent clear. No evidence of bleeding or bile leakage appreciated. Subsequently, after examination of the peritoneal cavity, there was no other evidence of disease of liver, gallbladder, uterus, ovaries, tubes and small intestine and the remainder of the colon appeared normal as was the stomach and peritoneal surface. Then, all trocars were removed under direct vision. Stay sutures were tied to each other to reapproximate the fascial defect. Subcutaneous wounds irrigated, bleeding controlled with cautery. 3-0 chromic was used to approximate the subcutaneous tissue and close the skin. Sterile dressing was applied. The patient awakened taken to Recovery in good general condition. MEMO/MODNasrin Voice ID: [id number] Report ID: [id number]
[2019-09-28] MEDS ORDERED: HYDROMORPHONE HCL 1 MG/ML INJ ONE (11:01)
[2019-09-28] MEDS: Ringers Lactate 1,000 ML IV SCH ×2 (11:26→21:00)
[2019-09-28] MEDS: HYDROCODONE/APAP 7.5/325 MG TAB PO PRN ×3 (12:29→22:03)
[2019-09-28] MEDS: CEFOXITIN/SWI 1gm 1 GM/10 ML SYR IV SCH ×2 (12:30→17:39)
[2019-09-28] MEDS: METRONIDAZOLE 500mg IVPB 500 MG/100 ML BAG IV SCH (16:53)
[2019-09-29] MEDS: CEFOXITIN/SWI 1gm 1 GM/10 ML SYR IV SCH ×4 (00:01→17:45)
[2019-09-29] MEDS: METRONIDAZOLE 500mg IVPB 500 MG/100 ML BAG IV SCH ×4 (00:02→17:43)
[2019-09-29] MEDS: HYDROCODONE/APAP 7.5/325 MG TAB PO PRN ×5 (04:03→22:41)
[2019-09-29 04:31] LABS: Absolute Lymphocytes (CBC) 0.5 K/uL (0.7-4.9); Basophils % 0.1 % (0-1.3); Hematocrit 36.8 % (36.0-45.0); Lymphocytes % 3.1 % (15.3-44.8); MPV 8.5 fL (7.6-11.3); RBC Red Blood Cell Count 4.18 M/uL (3.86-4.86)
[2019-09-29 04:42] LABS: BUN Blood Urea Nitrogen 8 mg/dL (7-18); Bicarbonate 22 mmol/L (21-32); Glucose Level 129 mg/dL (74-106); Magnesium 2.3 mg/dL (1.8-2.4); Potassium 4.2 mmol/L (3.5-5.1); Sodium Level 141 mmol/L (136-145); Thyroid Stimulating Hormone 0.154 uIU/mL (0.360-3.740)
[2019-09-29] MEDS: LEVOTHYROXINE SOD 0.075 MG TAB PO SCH (05:36)
[2019-09-29] MEDS: Ringers Lactate 1,000 ML IV SCH ×2 (07:00→17:00)
[2019-09-29] MEDS: TOFACITINIB CITRATE 10 MG PO SCH ×2 (08:20→20:26)
[2019-09-29] MEDS: LORATADINE 10 MG TAB PO SCH (08:21)
[2019-09-29] MEDS: CYANOCOBALAMIN 1,000 MCG TAB PO SCH (08:21)
[2019-09-29] MEDS: predniSONE 5 MG TAB PO SCH (08:25)
[2019-09-29] MEDS: DRISDOL (VITAMIN D=ERGOCALCIFEROL) 50000 UNIT CAP PO SCH (08:26)
--- NOTE | 2019-09-29 10:04 | PN ---
Date of Progress Note: 09/29/2019 Subjective: The patient is awake, alert, tolerating diet, ambulating. Pain controlled with p.o. aditi n medication. Afebrile. However, white count is still elevated at 17,000. Abdomen is benign. Assessment: Status post laparoscopic appendectomy and ulcerative colitis. Recommendations: Continue IV antibiotics today. Probable discharge tomorrow. Continue ulcerative c olitis medicines per the medical service. The patient is clinically doing well. /MODL Voice ID: [id number] Report ID: [id number]
--- NOTE | 2019-09-29 10:58 | P.PN ---
Subjective Date of Service: 09/29/19 Primary Care Provider: none Chief Complaint: Acute appendicitis Subjective: Improving Review of Systems Unremarkable Physical Examination - Vital Signs Temperature: 97.9 F Blood Pressure: 114/72 Pulse: 81 Respirations: 18 Pulse Ox (%): 99 - Physical Exam General: Alert, In no apparent distress, Oriented x3 HEENT: Atraumatic, Normocephalic Neck: Supple Respiratory: Clear to auscultation bilaterally, Normal air movement Cardiovascular: No edema Capillary refill: <2 Seconds Gastrointestinal: Normal bowel sounds, Soft and benign Musculoskeletal: No contractures, No erythema, No tenderness Integumentary: No erythema, No warmth Neurological: Normal speech, Normal strength at 5/5 x4 extr, Normal tone Assessment & Plan Discharge Plan: Home Plan to discharge in: 24 Hours - Code Status/Comfort Care Code Status Assessed: Yes Physician Review Additional Text: Assessment Acute appendicitis complicated by inflammation of the cecum and ascending colon secondary to ulcer colitis Ulcerative colitis Hypothyroidism Plan Acute appendicitis complicated by inflammation of the cecum and ascending colon secondary to ulcer colitis: Patient had a laparoscopic appendectomy yesterday, tolerated procedure well without complications. Patient doing much better today, states pain is significantly decreased. White blood cell count still elevated at 17, general surgery prefers to keep patient in hospital with IV antibiotics overnight. Will re-evaluate tomorrow, anticipate discharge tomorrow. Ulcerative colitis: Continue patient's home medications, monitor for worsening abdominal pain. Patient went to follow up with Dr. patrick on an outpatient basis. Hypothyroidism: Will obtain and continue patient's home medications. Will check TSH and free T4 with the morning labs. Critical Care: No Time Spent Managing Pts Care (In Minutes): 55
[2019-09-30] MEDS: METRONIDAZOLE 500mg IVPB 500 MG/100 ML BAG IV SCH ×2 (00:43→08:38)
[2019-09-30] MEDS: CEFOXITIN/SWI 1gm 1 GM/10 ML SYR IV SCH ×2 (00:43→06:08)
[2019-09-30] MEDS: HYDROCODONE/APAP 7.5/325 MG TAB PO PRN ×2 (04:54→09:39)
[2019-09-30] MEDS: LEVOTHYROXINE SOD 0.075 MG TAB PO SCH (06:08)
[2019-09-30 06:24] LABS: Absolute Lymphocytes (CBC) 1.5 K/uL (0.7-4.9); Basophils % 0.6 % (0-1.3); Lymphocytes % 13.4 % (15.3-44.8); RBC Red Blood Cell Count 4.29 M/uL (3.86-4.86)
[2019-09-30 06:59] LABS: Potassium 3.7 mmol/L (3.5-5.1)
--- NOTE | 2019-09-30 08:37 | P.DS ---
Admission Date: 09/28/19 Discharge Date: 09/30/19 Primary Care Provider: none Disposition: ROUTINE DISCHARGE Discharge Condition: GOOD Reason for Admission: Acute appendicitis Consultations: General surgery- Dr España Procedures: CT scan abdomen pelvis FINDINGS: The lung bases are clear. The liver, spleen, pancreas, adrenal glands and kidneys are within normal limits. No bowel obstruction, free air, free fluid or abscess. Mild inflammatory changes involves the cecum and ascending colon. The appendix appears mildly thickened with mucosal enhancement and dilated as well measuring up to 10 mm. No evidence of significant lymphadenopathy. No suspicious bony findings. IMPRESSION: Mild inflammation of the cecum and ascending colon is compatible with colitis. Dilatation of the appendix to 10 mm with mild mucosal thickening also present which could be secondary to the cecal inflammation or acute appendicitis. Laparoscopic appendectomy Completed, see operative report for further details. Medical problem list Acute appendicitis status post laparoscopic appendectomy History of ulcerative colitis Hypothyroidism Brief History of Present Illness: 24-year-old female with medical history of ulcerative colitis, hypothyroidism presents emergency department for a 1 day history of right-sided abdominal pain as localizing to the right lower quadrant. Patient reports this pain is not significantly different than her ulcer colitis pain which is usually in the left lower quadrant. Patient reports that she had a flare of ulcerative colitis approximately 1 month ago and has been on daily steroid since then. Patient is currently tapering down and currently at 5 mg daily. Patient was evaluated in the emergency department and found to have an elevated white blood cell count [address] indicating acute appendicitis. General surgery was consulted while the patient is in the emergency department and will take patient to the operating room shortly. General surgery wishes to have patient admitted to hospitalist service due to other chronic health issues. Will admit patient for further evaluation and management. Hospital Course: Patient was admitted with General Surgery consult. Patient had laparoscopic appendectomy on 09/28/2019. Patient was re-evaluated on 09/29/2019 and found to have still slightly elevated white blood cell count. General surgery prefer to keep patient NPO overnight and repeat CBC in the morning. Today's patient white blood cell count has improved, patient is doing well, pain is under control, patient tolerating diet. Patient need to follow up with Gastroenterology in regards to ulcerative colitis. At discharge will recommend she continues her current regiment in treating her ulcerative colitis. Patient has appointment with gastroenterology early next week. Patient at discharge will continue with ciprofloxacin 500 mg p.o. b.i.d. and Flagyl 500 mg p.o. t.i.d. both for 14 days. Patient will also continue with her previously prescribed prednisone 5 mg p.o. daily from gastroenterology. Patient will also be given Tylenol 3 with codeine for pain control. Vital Signs/Physical Exam: Temp Pulse Resp BP Pulse Ox 97.9 F 52 16 109/59 L 98 09/30/19 04:00 09/30/19 04:00 09/30/19 05:54 09/30/19 04:00 09/30/19 05:54 General: Alert, In no apparent distress HEENT: Atraumatic, PERRLA, EOMI Neck: Supple, JVD not distended Respiratory: Clear to auscultation bilaterally, Normal air movement Cardiovascular: Regular rate/rhythm, Normal S1 S2 Gastrointestinal: Normal bowel sounds, No tenderness Musculoskeletal: No tenderness Integumentary: No rashes Neurological: Normal speech, Normal tone, Normal affect Laboratory Data at Discharge: WBC 11.2 K/uL (4.3-10.9) H D 09/30/19 05:28 Hgb 12.7 g/dL (12.0-15.0) 09/30/19 05:28 Hct 38.0 % (36.0-45.0) 09/30/19 05:28 Plt Count 194 K/uL (152-406) 09/30/19 05:28 Sodium 142 mmol/L (136-145) 09/30/19 05:28 Potassium 3.7 mmol/L (3.5-5.1) 09/30/19 05:28 BUN 9 mg/dL (7-18) 09/30/19 05:28 Creatinine 0.88 mg/dL (0.55-1.3) 09/30/19 05:28 Glucose 93 mg/dL (74-106) 09/30/19 05:28 Magnesium 2.3 mg/dL (1.8-2.4) 09/29/19 03:48 Total Bilirubin 0.6 mg/dL (0.2-1.0) 09/28/19 06:30 AST 19 U/L (15-37) 09/28/19 06:30 ALT 28 U/L (12-78) 09/28/19 06:30 Alkaline Phosphatase 63 U/L (45-117) 09/28/19 06:30 Lipase 148 U/L (73-393) 09/28/19 06:30 Home Medications: Cyanocobalamin [Vitamin B-12] 1,000 mcg PO DAILY 09/28/19 Levothyroxine [Synthroid] 75 mcg PO [id number] 09/28/19 Loratadine [Claritin] 10 mg PO DAILY 09/28/19 Tofacitinib Citrate [Xeljanz] 10 mg PO BID 09/28/19 Vitamin D [Drisdol] 50,000 unit PO DAILY 09/28/19 predniSONE [Deltasone] 5 mg PO DAILY 09/28/19 Ciprofloxacin HCl [Cipro] 500 mg PO BID 14 Days #56 tablet 09/30/19 metroNIDAZOLE [Flagyl] 500 mg PO Q8H 14 Days #42 tablet 09/30/19 New Medications: Ciprofloxacin HCl [Cipro] 500 mg PO BID 14 Days #56 tablet metroNIDAZOLE [Flagyl] 500 mg PO Q8H 14 Days #42 tablet Patient Discharge Instructions: May shower. Keep ster-strips on at all times Diet: Regular Activity: No lifting more than 10 lbs Followup: Markell España MD [ACTIVE - CAN ADMIT] - 1 Week () Time spent managing pt's care (in minutes): 55
[2019-09-30] MEDS: predniSONE 5 MG TAB PO SCH (08:38)
[2019-09-30] MEDS: LORATADINE 10 MG TAB PO SCH (08:38)
[2019-09-30] MEDS: TOFACITINIB CITRATE 10 MG PO SCH (08:38)
[2019-09-30] MEDS: CYANOCOBALAMIN 1,000 MCG TAB PO SCH (08:38)
[2019-09-30] MEDS: DRISDOL (VITAMIN D=ERGOCALCIFEROL) 50000 UNIT CAP PO SCH (08:39)
[2019-09-30 09:03] VITALS: BP 113/64; TEMP 97
--- NOTE | 2019-09-30 09:21 | DS ---
Date of Discharge: 09/30/2019 Admitting Diagnoses: Ulcerative colitis and acute appendicitis. Discharge Diagnoses: Ulcerative colitis and acute appendicitis. Procedure Performed: Laparoscopic appendectomy. Hospital Course: The patient is a 24-year-old female underwent the aforementioned procedure. Postop eratively, she had leukocytosis and IV antibiotics were continued and today, it has almost normalized ; therefore, the patient will be discharged home on antibiotic as she is tolerating diet, ambulating, pain controlled with p.o. pain medication and she is afebrile. Disposition: To home. Condition: Stable. Discharge Instructions: Resume home medications and diet. Activity as tolerated. No heavy lifting. Remove outer dressing in a.m. Shower. Keep wound clean and dry. Keep Steri-Strips on at all time s. Follow up in my office in 1 week. Call for appointment. Tylenol No. 3 one tablet p.o. q.4 p.r.n . pain, Cipro 500 mg p.o. q.12 and Flagyl 500 mg p.o. q.8. MEMO/MONIQUE Voice ID: [id number] Report ID: [id number]
== END 2019-09-30 09:58 | disposition home or self-care (01) ==
LOC: ER 05:57 → 2ND 08:20 → INTOOBSV 08:20
PROVIDERS: ADMIT Family Medicine; ATTEND Family Medicine
PROC: 0DTJ4ZZ Resection of Appendix, Percutaneous Endoscopic Approach (ICD-10-PCS; principal; 2019-09-28 09:15)
DX: K35.80 Unspecified acute appendicitis (principal); K51.90 Ulcerative colitis, unspecified, without complications; Z11.59 Encounter for screening for other viral diseases; E03.9 Hypothyroidism, unspecified; Z79.899 Other long term (current) drug therapy
CPT/HCPCS: 96365; 96361; 36430; 85025 ×3; 80048 ×3; 36415 ×2; 83735; 81025; 82565; 80076; 88304; 84443; 81003; 84439; 83690; 74177; 96375; 99285; 44970; U0002; Q9967; J2704; J2370; J2250; J3010; J1100; J1170 ×2; J2710; J0696; J7120; J7030 ×2; J2405 ×2; G0378 ×4; J7512